=== PATIENT | female | born 1955 | race Two or more races ===

== ENCOUNTER 2025-07-30 16:47 | Emergency (ER) | payer OTHER, MEDICAID ==
[~2025-07-30] VITALS: Ht 154.9 cm; Wt 134.1 kg
[~2025-07-30 16:47] MED LIST: ALBU0.084 IN; ALBU0.084 NEB
--- NOTE | 2025-07-30 17:04 | ECG ---
[facility] Test Date: 2025-07-30 Test Time: 17:01:31 Pat Name: JEROMY BELTRÁN Department: ED Room: Gender: F Target Trimmer: : [id number] Requested By: MIKAYLA PARKER Order Number: [id number] Reading MD: Ted Mayes Measurements Intervals [place] Rate: 81 P: 64 [place]: 173 QRS: 30 QRSD: 102 T: 52 QT: 395 QTc: 459 Interpretive Statements Sinus rhythm Probable left atrial enlargement Baseline wander in lead(s) V3 Electronically Signed On 08-05-2025 14:12:20 PDT by Ted Mayes Please click the below link to view image of tracing.
--- NOTE | 2025-07-30 17:12 | ED.PDOC ---
[place]. trauma (HPI) HPI Comments 70 y/o F, with PMHx of DM and HTN presents to the ED for CC of s/p fall injury. Patient relays, she had a slip and fall in her shower x1week ago and is now experiencing right solder pain, pelvic pain, and bilateral leg pain. Patient reports, that she was seen at [facility] in [place] following trauma, and was told everything was unremarkable. Patient denies head injury, headache, loss of consciousness, nausea, or vomiting. No other symptoms or modifying factors are present at this time. Chief Complaint: Fall Injury Time Seen by MD: 17:00 Primary Care Provider: Stuart Reviewed notes: Nurses Notes, Medications, Allergies Allergies: Coded Allergies: NO KNOWN ALLERGIES (Unverified , 07/16/23) Home Meds Active Scripts Albuterol Sulfate (Albuterol Sulfate) 0.083 % Neb, 0.083 % IN q4, #14 INH Prov:ALYSHA JIMENEZ MD 07/17/23 Albuterol Sulfate (Albuterol Sulfate) 0.083 % Neb, 1 VIAL NEB Q4HPRN, #50 VIAL Prov:ALYSHA JIMENEZ MD 07/17/23 Information Source: Patient Mode of Arrival: Wheelchair Severity: Moderate Timing: Weeks Duration: Since onset Prehospital treatment: None Location: (L) Leg, (R) Leg, (R) Shoulder Location of laceration: None Mechanism: Fall Associated signs and symtoms: None Past Medical History PAST MEDICAL HISTORY: DM, HTN Surgical History: Unknown INSTALLATIONS INSPECTOR History: Denies all INSTALLATIONS INSPECTOR Hx Family History Family History: Unknown Social History Smoker: Non-Smoker Alcohol: Denies ETOH Use Drugs: Denies Drug Use Lives In: Home Constitutional: denies: chills, diaphoresis, fatigue, fever, malaise, sweats, weakness, others EENTM: denies: blurred vision, double vision, ear bleeding, ear discharge, ear drainage, ear pain, ear ringing, eye pain, eye redness, hearing loss, mouth pain, mouth swelling, nasal discharge, nose bleeding, nose congestion, nose pain, photophobia, tearing, throat pain, throat swelling, voice changes, others Respiratory: denies: cough, hemoptysis, orthopnea, SOB at rest, shortness of breath, SOB with excertion, stridor, wheezing, others Cardiovascular: denies: chest pain, dizzy spells, diaphoresis, Dyspnea on exertion, edema, irregular heart beat, left arm pain, lightheadedness, palpitations, PND, syncope, others Gastrointestinal: denies: abdomen distended, abdominal pain, blood streaked bowels, constipated, diarrhea, dysphagia, difficulty swallowing, hematemesis, melena, nausea, poor appetite, poor fluid intake, rectal bleeding, rectal pain, vomiting, others Genitourinary: denies: abnormal vagina bleeding, burning, dyspareunia, dysuria, flank pain, frequency, hematuria, incontinence, pain, , vagina discharge, urgency, others Neurological: denies: dizziness, fainting, headache, left sided numbness, left sided weakness, numbness, paresthesia, pre-existing deficit, right sided nu mbness, right sided weakness, seizure, speech problems, tingling, tremors, weakness, others Musculoskeletal: reports: others (RIGHT SHOULDER PAIN, PELVIC PAIN, LEG PAIN); denies: back pain, gout, joint pain, joint swelling, muscle pain, muscle stiffness, neck pain Integumetry: denies: bruises, change in color, change in hair/nails, dryness, laceration, lesions, lumps, rash, wounds, others Allergic/Immunocompromised: denies: Difficulty Healing, Frequent Infections, Hives, Itching, others Hematologic/Lymphatic: denies: anemia, blood clots, easy bleeding, easy bruising, swollen glands, others Endocrine: denies: excessive hunger, excessive sweating, excessive thirst, excessive urination, flushing, intolerance to cold, intolerance to heat, unexplained weight gain, unexplained weight loss, others Psychiatric: denies: anxiety, bipolar disorder, depression, hopeless, panic disorder, schizophrenia, sleepless, suicidal, others All Other Systems: Reviewed and Negative Physical Exam General Appearance: Moderate Distress HEENT: Normal ENT Inspection, Pharynx Normal, TMs Normal Neck: Full Range of Motion, Non-Tender, Normal, Normal Inspection Respiratory: Chest Non-Tender, Lungs Clear, No Accessory Muscle Use, No Respiratory Distress, Normal Breath Sounds Cardiovascular: No Edema, No JVD, No Murmur, No Gallop, Normal Peripheral Pulses, Regular Rate/Rhythm Breast Exam: Deferred Gastrointestinal: No Organomegaly, Non Tender, No Pulsatile Mass, Normal Bowel Sounds, Soft Genitalia: Deferred Pelvic: Deferred Rectal: Deferred Extremities: No calf tenderness, Normal capillary refill, No pedal edema Musculoskeletal : Location: Bilateral Extremity Location: Hip Apperance: Limited ROM, Tenderness: Moderate Neurologic: Alert, handling tech II-XII nml as Tested, No Motor Deficits, Normal Affect, Normal Mood, No Sensory Deficits Cerebellar Function: Normal Reflexes: Normal Skin: Dry, Normal Color, Warm Lymphatic: No Adenopathy Was a procedure done? Was a procedure done?: No EKG EKG : Pulse Rate (adult): 81 [place]: Normal Cardiac Rhythm: NSR Block: None Hypertrophy: LAE ST: Normal Differential Diagnosis Multiple Trauma: Fractures, Other (sprain, strain, musculoskeletal pain) X-Ray, Labs, Meds, VS Vital Signs Date Time Temp Pulse Resp B/P (MAP) Pulse Ox O2 Delivery O2 Flow Rate FiO2 07/30/25 17:13 81 07/30/25 17:01 81 07/30/25 16:48 98.0 86 18 107/65 96 98.0 Lab Test 07/30/25 17:42 Range/Units White Blood Count 9.6 4.4-10.8 10^3/uL Red Blood Count 5.14 4.0-5.20 10^6/uL Hemoglobin 12.3 12.2-16.2 g/dL Hematocrit 38.3 36.0-46.0 % Mean Corpuscular Volume 74.4 L 80.0-100.0 fL Mean Corpuscular Hemoglobin 24.0 L 28.0-32.0 pg Mean Corpuscular Hemoglobin Concent 32.2 32.0-36.0 g/dL Red Cell Distribution Width 17.1 H 11.8-14.3 % Platelet Count 432 140-450 10^3/uL Mean Platelet Volume 7.2 6.9-10.8 fL Neutrophils (%) (Auto) 63.2 37.0-80.0 % Lymphocytes (%) (Auto) 25.6 10.0-50.0 % Monocytes (%) (Auto) 7.3 0.0-12.0 % Eosinophils (%) (Auto) 3.2 0.0-7.0 % Basophils (%) (Auto) 0.7 0.0-2.0 % Neutrophils # (Auto) 6.0 1.6-8.6 10 ^3/uL Lymphocytes # (Auto) 2.5 0.4-5.4 10 ^3/uL Monocytes # (Auto) 0.7 0-1.3 10 ^3/uL Eosinophils # (Auto) 0.3 0-0.8 10 ^3/uL Basophils # (Auto) 0.1 0-0.2 10 ^3/uL Nucleated Red Blood Cells 0.1 % Sodium Level 142 136-145 mmol/L Potassium Level 3.2 L 3.5-5.1 mmol/L Chloride Level 99 98-107 mmol/L Carbon Dioxide Level 32 H 20-31 mmol/L Anion Gap 11 5-15 Blood Urea Nitrogen 9 9-23 mg/dL Creatinine 0.74 0.550-1.02 mg/dL Glomerular Filtration Rate Calc 88 >90 mL/min BUN/Creatinine Ratio 12.2 10.0-20.0 Serum Glucose 105 74-106 mg/dL Calcium Level 9.2 8.7-10.4 mg/dL The CAT scan of the pelvis shows: IMPRESSION: Limited evaluation without contrast. No identifiable pelvic fracture. Auli-lm-oqjganme degenerate changes bilateral hips. Enlarged uterus with suspected multiple leiomyomas. Ultrasound pelvis/MRI pelvis suggested to further characterized which can be done in the nonemergent setting. X-ray of the right shoulder is negative The CBC and chemistry panel shows hypokalemia at 3.2 An IV Hep-Lock is being established The patient was given Toradol 15 mg IV push The patient is being admitted with a diagnosis of intractable pain The patient is also given potassium for the hypokalemia Images Reviewed?: Images reviewed and evaluated by me Time of 1ST Reevaluation: 17:30 Reevaluation 1ST: Unchanged Patient Education/Counseling: Diagnosis, Treatment Family Education/Counseling: No Family Present Departure 1 Departure Time of Disposition: 18:28 Impression: Primary Impression: History of fall Additional Impressions: Intractable pain Hypokalemia Disposition: ADMITTED INPATIENT Admit to: Med Surg Condition: Fair Critical Care Note Critical Care Time?: No Stability Stability form required: Yes Unstable for transfer: ED Physician Assesment (Clinical assesment) Heart Score Heart Score: Heart Score Response (Comments) Value History N/A 0 EKG N/A 0 Age N/A 0 Risk Factors N/A 0 Troponin N/A 0 Total 0 I personally scribed for MIKAYLA PARKER MD ([email or web address]) on 07/30/25 at 17:12. Electronically submitted by Na Cristina ([email or web address]). I personally scribed for MIKAYLA PARKER MD ([email or web address]) on 07/30/25 at 17:13. Electronically submitted by Na Cristina ([email or web address]). MIKAYLA PARKER MD Jul 30, 2025 17:12
--- NOTE | 2025-07-30 17:50 | DVH ---
CLINICAL HISTORY: fall TECHNIQUE: 3 views of the right shoulder were obtained. COMPARISON: None FINDINGS: No acute fracture or dislocation is seen. No soft tissue abnormality is evident. There are mild degen erative changes of the acromioclavicular joint with osteophyte formation. IMPRESSION: NO ACUTE RADIOGRAPHIC ABNORMALITY OF THE RIGHT SHOULDER.
--- NOTE | 2025-07-30 17:53 | DVH ---
Indication: trauma Technique: CT axial images of the pelvis are obtained without contrast. Coronal and sagittal reformat s were obtained. Radiation Dose Information: CTDI volume is 39 mGy. Dose-length product is 1396 mGy*cm Comparison: None FINDINGS: Enlarged uterus with multiple leiomyomas many of which are calcified. No free pelvic fluid. Bladder partially distended. Cxaw-fr-[id number] degenerate changes bilateral hips. Pubic symphysis is intact. Lsaa-bn-iugriffw dege nerate changes of the bilateral sacroiliac joints. Left inguinal lymph nodes up to 12 mm. Right inguinal lymph nodes measuring up to 12 mm. IMPRESSION: Limited evaluation without contrast. No identifiable pelvic fracture. Yzgg-zn-jvydkxuh degenerate changes bilateral hips. Enlarged uterus with suspected multiple leiomyomas. Ultrasound pelvis/MRI pelvis suggested to further characterized which can be done in the nonemergent setting.
[2025-07-30 18:09] LABS: Hematocrit 38.3 % (36.0-46.0); Hemoglobin 12.3 g/dL (12.2-16.2); Mean Corpuscular Hemoglobin 24.0 pg (28.0-32.0); Mean Corpuscular Volume 74.4 fL (80.0-100.0); Nucleated Red Blood Cells % 0.1 %
[2025-07-30 18:16] LABS: Chloride 99 mmol/L (98-107); Sodium 142 mmol/L (136-145)
[2025-07-30 18:17] LABS: Anion Gap 11 (5-15)
[2025-07-30 18:18] LABS: Calcium 9.2 mg/dL (8.7-10.4)
[2025-07-30 18:20] LABS: Carbon Dioxide 32 mmol/L (20-31); Potassium 3.2 mmol/L (3.5-5.1)
[2025-07-30 18:22] LABS: Glucose 105 mg/dL (74-106)
[2025-07-30 18:23] LABS: BUN/Creatinine Ratio 12.2 (10.0-20.0); Blood Urea Nitrogen 9 mg/dL (9-23)
[2025-07-30 20:24] VITALS: BP 148/78; PULSE 79; RESP 13; TEMP 98.2
[2025-07-30] MEDS: POTASSIUM CHL 20 Meq TABLET PO ONE (20:26)
[2025-07-30] MEDS: KETOROLAC TROMETH 30 MG/ML 1ML VIAL IV ONE (20:28)
[2025-07-30 20:33] VITALS: O2SAT 95
== END 2025-07-30 20:33 | disposition left against medical advice (07) ==
LOC: ER 16:49
DX: S39.91XA Unspecified injury of abdomen, initial encounter (principal); S39.93XA Unspecified injury of pelvis, initial encounter; E87.6 Hypokalemia; M79.604 Pain in right leg; M79.605 Pain in left leg; R10.20 Pelvic and perineal pain unspecified side; I10 Essential (primary) hypertension; E11.9 Type 2 diabetes mellitus without complications; W18.2XXA Fall in (into) shower or empty bathtub, initial encounter; Y92.002 Bathroom of unspecified non-institutional (private) residence as the place of occurrence of the external cause; Y93.E1 Activity, personal bathing and showering; Y99.8 Other external cause status
CPT/HCPCS: 36415; 72192; 73030; 80048; 85025; 93005; 96374; 99285; J1885